=== PATIENT | female | born 1980 | race Caucasian/White ===

== ENCOUNTER 2021-09-14 07:53 | Day surgery (SDCO) | payer OTHER ==
[~2021-09-14] VITALS: Ht 157.5 cm; Wt 59.0 kg
[~2021-09-14 07:53] MED LIST: BLACK ELDERBER1 EACH PO; D3 DOTS50 MCG PO; HAIR SKIN NAIL1 EACH PO; IMMUNICARE CAP1 EACH PO; IRON236 MG PO; MULTI ANTIBIOTI14 GM PO
[2021-09-14 08:32] LABS: HCG (URINE) SCREEN NEGATIVE (NEGATIVE)
[2021-09-14 08:47] LABS: HCT 35.5 % (37.0-47.0); HGB 11.9 g/dl (12.5-16.0); MCH 31.6 pg (25.0-31.0); MCHC 33.5 g/dL (32.0-36.0); MCV 94.4 fL (78.0-100.0); MPV 10.2 fL (6.0-9.5); RBC 3.76 M/uL (4.20-5.40); RDW 12.2 % (11.5-14.0); WBC 4.6 K/uL (4.0-10.5)
[2021-09-15 05:51] LABS: BASOPHIL 0.2 % (0-2); EOSINOPHIL 1.7 % (0-5); HGB 8.6 g/dl (12.5-16.0); LYMPHOCYTE 15.7 % (15-48); MCH 31.9 pg (25.0-31.0); MCHC 33.1 g/dL (32.0-36.0); MCV 96.3 fL (78.0-100.0); MONOCYTE 7.7 % (0-12); MPV 10.1 fL (6.0-9.5); NEUTROPHIL 74.5 % (41-80); NRBC 0; PLT 159 K/uL (150-400); RDW 12.3 % (11.5-14.0); WBC 4.1 K/uL (4.0-10.5)
[2021-09-15] MEDS ORDERED: MOTRIN600 MG PO (08:33)
[2021-09-15] MEDS ORDERED: COLACE100 MG PO (08:33)
[2021-09-15] MEDS ORDERED: PERCOCET 5-3251 EACH PO (08:33)
== END 2021-09-15 09:00 | disposition home or self-care (01) ==
LOC: FAS 07:53 → FMS 12:44
PROVIDERS: ADMIT Obstetrics & Gynecology
DX: N72 Inflammatory disease of cervix uteri (principal); N88.8 Other specified noninflammatory disorders of cervix uteri; N93.9 Abnormal uterine and vaginal bleeding, unspecified; N92.0 Excessive and frequent menstruation with regular cycle; N94.12 Deep dyspareunia; N94.6 Dysmenorrhea, unspecified; N92.6 Irregular menstruation, unspecified; N89.8 Other specified noninflammatory disorders of vagina; F17.200 Nicotine dependence, unspecified, uncomplicated; Z88.5 Allergy status to narcotic agent; Z88.8 Allergy status to other drugs, medicaments and biological substances
CPT/HCPCS: 36415; 71045; 84703; 85025; 86850; 86900; 86901; 93005; G0378; J0690; J1170; J1885; J2001; J2250; J2270; J2405; J2704; J3010; J7120; J7121